=== PATIENT | female | born 1985 | race Hispanic/Latino ===

== ENCOUNTER 2022-01-30 20:08 | Emergency (ER) | payer OTHER | END 2022-01-30 20:21 | disposition home or self-care (01) | LOC: ERS 20:08 | DX: S00.83XA Contusion of other part of head, initial encounter (principal); Y04.8XXA Assault by other bodily force, initial encounter | CPT/HCPCS: 99283 ==

== ENCOUNTER 2022-06-01 02:14 | Emergency (ER) | payer OTHER, SELFPAY | END 2022-06-01 02:55 | disposition home or self-care (01) | LOC: ERS 02:14 | DX: S80.02XA Contusion of left knee, initial encounter (principal); S16.1XXA Strain of muscle, fascia and tendon at neck level, initial encounter; W22.8XXA Striking against or struck by other objects, initial encounter ==